=== PATIENT | female | born 1975 | race Caucasian/White ===

== ENCOUNTER 2022-09-09 09:16 | Outpatient (REF) | payer MEDICAID, SELFPAY ==
--- NOTE | ~2022-09-09 | XR_ITS ---
EXAMINATION: X-RAY LEFT ANKLE, X-RAY LEFT WRIST CLINICAL INFORMATION: Pain left ankle and joints of left foot. Left wrist pain. COMPARISON: None. TECHNIQUE: 3 views of the left ankle. 4 views of the left wrist. LEFT ANKLE: Soft tissue swelling along lateral aspect of the ankle. Ankle mortise and talar dome appear intact. Small plantar calcaneal spur. Mild dorsal calcaneal hypertrophic change. No displaced fracture. LEFT WRIST: Radiopaque marker placed to indicate the area of concern as indicated by the patient adjacent to the distal radius. No displaced fracture identified. Moderate degenerative changes first carpometacarpal joint with joint space narrowing and hypertrophic change. XR/XR wrist LT min 3V IMPRESSION: 1. Small plantar calcaneal spur. 2. Moderate degenerative changes first carpometacarpal joint with joint space narrowing and hypertrophic change. 3. No displaced fracture of the left wrist and the left ankle. Recommend follow-up imaging in 10-14 days if fracture is suspected.
--- NOTE | ~2022-09-09 | XR_ITS ---
EXAMINATION: X-RAY LEFT ANKLE, X-RAY LEFT WRIST CLINICAL INFORMATION: Pain left ankle and joints of left foot. Left wrist pain. COMPARISON: None. TECHNIQUE: 3 views of the left ankle. 4 views of the left wrist. LEFT ANKLE: Soft tissue swelling along lateral aspect of the ankle. Ankle mortise and talar dome appear intact. Small plantar calcaneal spur. Mild dorsal calcaneal hypertrophic change. No displaced fracture. LEFT WRIST: Radiopaque marker placed to indicate the area of concern as indicated by the patient adjacent to the distal radius. No displaced fracture identified. Moderate degenerative changes first carpometacarpal joint with joint space narrowing and hypertrophic change. XR/XR ankle LT min 3V IMPRESSION: 1. Small plantar calcaneal spur. 2. Moderate degenerative changes first carpometacarpal joint with joint space narrowing and hypertrophic change. 3. No displaced fracture of the left wrist and the left ankle. Recommend follow-up imaging in 10-14 days if fracture is suspected.
== END 2022-09-09 09:17 | disposition home or self-care (01) ==
LOC: HO.XRAY 09:16
PROVIDERS: PCP Nurse Practitioner; Visit Provider Internal Medicine Rheumatology
DX: R76.8 Other specified abnormal immunological findings in serum (principal); M25.572 Pain in left ankle and joints of left foot; M25.532 Pain in left wrist
CPT/HCPCS: 73110; 73610; 99202

== ENCOUNTER 2022-09-09 09:16 | Outpatient (AMB) | payer MEDICAID, SELFPAY ==
--- NOTE | 2022-09-09 09:22 | MHC.OFFVIS ---
Intake Vital Signs 09/09/22 09:24 Height 5 ft 3 in Weight 136 lb 0.403 oz BMI 24.1 BP 116/68 Blood Pressure Location Rt brachial Position Sitting Pulse 98 Pulse Source Pulse Oximeter Temp 97.5 F Temp Source Skin Pulse Oximetry (%) 98 Intake Visit Reasons: + JES Intake Note: New pt presents today for +JES consult. C/o pain in bl wrist, neck, shoulder, and ankle. 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 She is referred from the [facility]. Today's visit is facilitated with the use of the [employer] translating service. The patient is concerned because she has multiple family members said to have rheumatoid arthritis. This includes her mother, grandmother, aunt and her brother. For about 2 years she has been having some neck pain. This is worse with bending the neck forward. She does not really note any radicular pain. Somewhat more recently, for the last 6-8 months she has noted some pain in the wrists, left more than the right. This is worse with more physical activity. She notes most of the pain on the ulnar aspect of the left wrist. There is occasional pain in the left ankle as well. This is more on the lateral aspect. She does not recall any injury to these areas. She does intermittently do housework and that seems to make her symptoms worse. There are days when she has no pain. She takes some diclofenac tablets that she obtained in her home country, [facility] but she only uses them a few times a month. They do seem to be helpful. There are no hand paresthesias. She does not have fingertip color changes in the cold that might suggest Raynaud's symptoms. She was told that the JES titer with low but I do not have any copies of that to review. [facility] Medical History (Updated 09/09/22 @ 13:12 by Obi Hannon MD) JES positive Dyslipidemia Myalgia Polyarthralgia Surgical History (Updated 09/09/22 @ 09:32 by STALIN Mckenna) Hx of section Hx of hysterectomy Family History (Updated 09/09/22 @ 09:32 by STALIN Mckenna) Father Stomach cancer Mother Family history of rheumatoid arthritis Social History (Updated 09/09/22 @ 09:30 by STALIN Mckenna) Household Members: Spouse Alcohol intake: current Alcohol intake frequency: holidays/special occasions only Patient Tobacco Use Status: Never used Tobacco Current occupational status: unemployed Female Reproductive History Menstrual Total pregnancies: 2 Number of Living Children: 1 Ectopics: 1 Review of Systems Const Details: Negative for appetite change, weight change, fever, chills, malaise and fatigue Eyes Details: Negative for vision change, dry eyes,headaches and dizziness ENT Details: Negative for hearing change, tinnitus, oral ulcer, nose bleeds and oral dryness. Card Details: Negative chest pain, edema and syncope Resp Details: Negative for SOB, cough and wheezing GI Details: Occasional constipation. Negative indigestion/heartburn, nausea, abdominal pain, bowel changes, diarrhea and bloody stool. Details: Negative for dysuria, hematuria, nocturia, decreased force/flow and genital discharge Skin/Breast Details: Negative for itching, rash, hives, Raynaud's symptoms, sun sensitivity, and skin cancer Neuro Details: Negative for epilepsy, palsy, stroke, changes in speech, tingling and weakness Psych Details: Negative for anxiety, depression and stress Endo Details: Negative for polyuria and polydypsia He/Lymph Details: Negative for excessive bruising or bleeding. Physical Exam Vital Signs: Last Vital Signs Temp 97.5 F 09/09/22 09:24 Pulse 98 09/09/22 09:24 BP 116/68 09/09/22 09:24 Pulse Ox 98 09/09/22 09:24 BMI result Body Mass Index 24.1 APPEARANCE: Patient in no acute distress EYES no redness, pupils equal and reactive to light, eyelids normal EARS: External ear normal, canal clear and tympanic membrane normal. NOSE/SINUS: Airflow through both nares, no nasal discharge, no bleeding THROAT: Oral mucosa moist, no ulcerations NECK: No thyromegaly or masses, no adenopathy, trachea midline. HEART: Regulrar rhythm, S1-S2 heard, no murmurs, rubs or gallops. LUNG: Clear to percussion and auscultation ABD: Normal bowel sounds, no organomegaly, masses or tenderness. EXTREMITIES: No edema, no calf tenderness, normal peripheral pulses. NEURO: Oriented and alert x3. No focal weakness. Reflexes symmetric. Gait normal. SKIN: No inflammatory or neoplastic lesions. Normal color and turgor JOINT EXAM:?? Cervical Spine: Slight discomfort with extremes of range of motion. No tenderness. Thoracic Spine:.? No scoliosis.? No tenderness on palpation. Lumbar Spine:.? Alignment normal.? The slight pain with flexion at 80 degrees. Straight leg raising is negative. No areas of tenderness. Chest Wall:.? No tenderness, swelling, increased warmth or erythema. Hands: Right: Normal pain-free range of motion. There is some slight tenderness at the thumb MCP without any swelling noted. There is no flexor tendon triggering, thenar atrophy or sensory loss. Left: Slight tenderness of the 1st 2 MCP joints and the 3rd and 4th PIP joints but no swelling is appreciated. There is no flexor tendon triggering, thenar atrophy or sensory loss. Wrists: Right: Slight discomfort with 80 degrees flexion extension with no tenderness or swelling today. Left: Mild pain with flexion at 75 degrees or extension at 60 degrees. Most the pain seems to be on the volar and ulnar aspect. That region is mild tenderness but I cannot really appreciate any swelling. There is no redness, soft tissue mass or warmth. Elbows:. Normal pain-free range of motion without tenderness, swelling, increased warmth or erythema. Shoulders:.?? Full range of motion without pain. No tenderness, weakness, swelling, increased warmth or erythema. Hips:.? Full range of motion without pain. Hip bursa:.? No tenderness. Knees:.?? Normal pain-free range of motion without tenderness, swelling, increased warmth or erythema.? There is no effusion or crepitation Ankles:. Left: Mild discomfort with extremes of AP motion and inversion or eversion. There is mild medial, lateral and anterior tenderness but I cannot appreciate any swelling. There is no redness or warmth. Right:? Normal pain-free range of motion without tenderness, swelling, increased warmth or erythema. Feet:.? Normal pain-free range of motion without tenderness, swelling, increased warmth or erythema. Tender points:.? No tenderness to digital palpation at the occiput, trapezius, second rib, lateral epicondyle, knees, greater trochanter and gluteal area bilaterally. ? Results Reviewed Results Reviewed: Notes from the [facility] and a positive JES. I do not know if there are other serologic tests done. Assessment & Plan Assessment & Plan (1) JES positive: Code(s): R76.8 - Other specified abnormal immunological findings in serum (2) Polyarthralgia: Code(s): M25.50 - Pain in unspecified joint (3) Ankle pain, left: Code(s): M25.572 - Pain in left ankle and joints of left foot (4) Wrist pain, left: Code(s): M25.532 - Pain in left wrist Plan The patient has a 2 year history of neck pain and now more recently some left wrist and left ankle pain. Symptoms are worse with physical activity suggesting overuse tendinitis and or degenerative processes. She does not have any symptoms to suggest SLE in spite of the positive JES. I will look into these symptoms further with inflammatory markers, CBC, Chem panel and urine protein. X-rays of the left wrist and left ankle are ordered. For now she will continue with the NSAIDs as needed. We will get back to her with the results of her studies. Orders: Orders Comprehensive Met. Panel Today M25.50 - Pain in unspecified joint, R76.8 - Other specified abnormal immunological findings in serum C Reactive Protein Today M25.50 - Pain in unspecified joint, R76.8 - Other specified abnormal immunological findings in serum Thyroid Stimulating Hormone Today M25.50 - Pain in unspecified joint, R76.8 - Other specified abnormal immunological findings in serum Protein Creatinine Ratio, Ur Today M25.50 - Pain in unspecified joint, R76.8 - Other specified abnormal immunological findings in serum Complete Blood Count Auto Diff Today M25.50 - Pain in unspecified joint, R76.8 - Other specified abnormal immunological findings in serum Erythrocyte Sedimentation Rate Today M25.50 - Pain in unspecified joint, R76.8 - Other specified abnormal immunological findings in serum Anti DNA DS Antibody Today M25.50 - Pain in unspecified joint, R76.8 - Other specified abnormal immunological findings in serum Anti Extractable Nuclear Ag Today M25.50 - Pain in unspecified joint, R76.8 - Other specified abnormal immunological findings in serum XR ankle LT min 3V Today M25.572 - Pain in left ankle and joints of left foot XR wrist LT min 3V Today M25.532 - Pain in left wrist Coding Level of Care Code New Pt Level 3 (69439) Diagnoses JES positive R76.8 Polyarthralgia M25.50 Ankle pain, left M25.572 Wrist pain, left M25.532
[2022-09-09 09:24] VITALS: BP 116/68; PULSE 98; TEMP 36.4; O2SAT 98; BMI 24.1
== END 2022-09-09 10:16 | disposition home or self-care (01) ==
PROVIDERS: PCP Nurse Practitioner; Visit Provider Internal Medicine Rheumatology
DX: R76.8 Other specified abnormal immunological findings in serum (principal); M25.50 Pain in unspecified joint; M25.572 Pain in left ankle and joints of left foot; M25.532 Pain in left wrist
CPT/HCPCS: 99203

== ENCOUNTER 2022-09-09 10:28 | Outpatient (REF) | payer MEDICAID, SELFPAY ==
[2022-09-09 11:02] LABS: MANUAL DIFF FLAG NO
[2022-09-09 11:12] LABS: Basophils Percent Auto 0.3 % (0-2); Eosinophils Absolute Auto 0.1 X10*3/uL (0.0-0.4); Eosinophils Percent Auto 1.3 % (0-4); Hematocrit 38.5 % (37.0-47.0); Hemoglobin 12.5 g/dl (12.0-16.0); Imm Gran Abs Auto 0.03 X10*3/uL (0.00-0.03); Imm Gran Pct Auto 0.3 % (0.0-0.4); Lymphocytes Absolute Auto 3.7 X10*3/uL (1.2-4.9); Lymphocytes Percent Auto 40.9 % (20-40); Mean Corpuscular HGB Conc 32.5 g/dl (31.0-35.0); Mean Corpuscular Hemoglobin 27.3 pg (27.0-33.0); Mean Corpuscular Volume 84.1 fL (80.0-98.0); Mean Platelet Volume 11.1 fL (9.4-12.3); Monocytes Absolute Auto 0.7 X10*3/uL (0.1-1.2); Monocytes Percent Auto 7.6 % (2-11); Neutrophils Absolute Auto 4.5 x10*3/uL (2.0-8.3); Neutrophils Percent Auto 49.6 % (45-73); Platelet Count 278 X10*3/uL (160-400); Red Blood Count 4.58 X10*6/uL (4.20-5.50)
[2022-09-09 11:43] LABS: Alanine Aminotransferase 19 U/L (0-31); Albumin Level 4.2 g/dL (3.5-5.0); Alkaline Phosphatase 104 U/L (39-117); Anion Gap 9 (12-20); Aspartate Amino Transferase 14 U/L (5-31); Bilirubin Total 0.5 mg/dL (0.0-1.0); Blood Urea Nitrogen 15 mg/dL (9-16); Calcium 10.2 mg/dL (8.4-10.2); Carbon Dioxide 28 mmol/L (22-29); Chloride 107 mmol/L (96-108); Estimated Glomerular Filt Rate > 60; Glucose Random 98 mg/dL (60-115); Potassium 3.6 mmol/L (3.3-5.1); Sodium 140 mmol/L (135-145); Total Protein 7.2 g/dL (6.5-8.0)
[2022-09-09 11:48] LABS: Thyroid Stimulating Hormone < 0.01 uIU/mL (0.32-4.0)
[2022-09-09 11:59] LABS: Erythrocyte Sedimentation Rate 13 MM/HR (0-20)
[2022-09-09 12:02] LABS: Creatinine Urine 158.06 mg/dL; Protein/Creatinine Ratio, Ur 0.08 (<0.2); Total Protein Urine Random 12 mg/dL (<12)
[2022-09-09 15:26] LABS: Free T4 (Free Thyroxine) 2.36 ng/dL (0.71-1.85)
[2022-09-11 21:34] LABS: Anti DNA DS Antibody <1 IU/mL; SM/Ribonucleoprotein Ab <1.0 NEG AI (<1.0 NEG); Smith Protein <1.0 NEG AI (<1.0 NEG)
== END 2022-09-09 10:29 | disposition home or self-care (01) ==
LOC: HO.10HDL 10:28
PROVIDERS: Visit Provider Internal Medicine Rheumatology
DX: M25.50 Pain in unspecified joint (principal); R76.8 Other specified abnormal immunological findings in serum; R79.89 Other specified abnormal findings of blood chemistry
CPT/HCPCS: 36415; 80053; 84156; 84439; 84443; 85025; 85652; 86140; 86225; 86235